=== PATIENT | male | born 1950 | race Caucasian/White ===

== ENCOUNTER 2017-07-09 11:02 | Emergency (ER) | payer MEDICARE, OTHER ==
[2017-07-09 11:33] LABS: Basophils % (Auto) 0.9 % (0.0-1.8); Eosinophils % (Auto) 2.2 % (0.0-4.3); Hematocrit 41.2 % (35.5-45.6); Hemoglobin 14.3 gm/dl (11.8-15.2); Mean Corpuscular HGB Conc 35 % (32-34); Mean Corpuscular Hemoglobin 31 pg (28-32); Mean Corpuscular Volume 90 fl (84-94); Platelet Count 169 K/mm3 (140-440); Red Blood Count 4.59 M/mm3 (3.65-5.03); Red Cell Distribution Width 13.2 % (13.2-15.2); White Blood Count 6.8 K/mm3 (4.5-11.0)
[2017-07-09 11:39] LABS: INR 1.03 (0.87-1.13); Partial Thromboplastin Time 25.5 Sec. (24.2-36.6)
--- NOTE | 2017-07-09 11:50 | Cat Scan Report ---
CT HEAD WITHOUT CONTRAST: HISTORY: Neurological deficit, stroke. Serial contiguous axial images were obtained through the cranium. Intravenous contrast material was not administered. An acute hemorrhage is identified in the right lateral thalamus which extends to involve the posterior limb of internal capsule and the right valencia radiata. The hemorrhage measures up to 1.6 cm in greatest diameter. There is no evidence for significant mass effect, midline shift or intraventricular extension. The remainder of the brain parenchyma is within normal limits. Normal ventricular size. The posterior fossa and contents are unremarkable. The mastoid air cells and visualized portions of the sinuses are normal. IMPRESSION: Right thalamic hemorrhage as described above. These findings were discussed with Dr. Prather in the emergency department at 1146 hrs.
[2017-07-09 12:00] LABS: Anion Gap 20 mmol/L; BUN/Creatinine Ratio 21; Blood Urea Nitrogen 17 mg/dL (9-20); Calcium 9.5 mg/dL (8.4-10.2); Carbon Dioxide 21 mmol/L (22-30); Chloride 101.7 mmol/L (98-107); Glucose 199 mg/dL (75-100); Potassium 4.1 mmol/L (3.6-5.0); Sodium 139 mmol/L (137-145)
--- NOTE | 2017-07-09 12:01 | Emergency Department Report ---
ED Neuro Deficit HPI - General Chief Complaint: Neuro Symptoms/Deficit Stated Complaint: LEFT ARM AND LEG NUMBNESS Time Seen by Provider: 07/09/17 11:47 Source: patient Mode of arrival: Ambulatory Limitations: No Limitations - History of Present Illness Initial Comments: This is a 67-year-old male, the patient is previously unknown to this provider, reports a past medical history of diabetes, hypertension and high cholesterol. Patient presents to the ER with a complaint of left arm weakness and numbness which started last night. No headache, neck pain, chest pain, abdominal pain or shortness of breath. No cocaine use. Not taking anticoagulants. Patient reports this is a happen before. Symptoms are constant. They have no exacerbating or relieving factors. -: Gradual Location: left arm Presenting Symptoms: Present: Weak/Paralyzed One Side. Absent: Sudden, Severe Headache, Blurred/Loss of Vision, Facial Droop/Numbness, Unable to Speak Clearly , Altered Mental Status History of same: No Place: home Severity: mild Quality: numb Improves With: none Worsens With: none On Anticoagulants: No Context: sudden onset Associated Symptoms: denies: confusion, chest pain, cough, diaphoresis, fever/ chills, headaches, loss of appetite, malise, nausea/vomiting, seizures, shortness of breath, syncope, weakness - Related Data Home Medications: Home Medications Medication Instructions Recorded Confirmed Last Taken metFORMIN [Glucophage] 1,000 mg PO BID 07/09/17 07/09/17 07/09/17 Allergies/Adverse Reactions: Allergies Allergy/AdvReac Type Severity Reaction Status Date / Time No Known Allergies Allergy Unverified 07/09/17 11:14 ED Review of Systems ROS: Stated complaint: LEFT ARM AND LEG NUMBNESS Other details as noted in HPI Constitutional: denies: fever Eyes: denies: eye discharge ENT: denies: epistaxis Respiratory: denies: cough Cardiovascular: denies: chest pain Gastrointestinal: denies: abdominal pain Genitourinary: denies: dysuria Musculoskeletal: as per HPI Skin: as per HPI Neurological: numbness. denies: headache Psychiatric: as per HPI ED Past Medical Hx - Past Medical History Previous Medical History?: Yes Hx Hypertension: Yes Hx Diabetes: Yes Additional medical history: high cholesterol - Surgical History Past Surgical History?: No - Social History Smoking Status: Former Smoker Substance Use Type: Alcohol, Prescribed - Medications Home Medications: Home Medications Medication Instructions Recorded Confirmed Last Taken Type metFORMIN [Glucophage] 1,000 mg PO BID 07/09/17 07/09/17 07/09/17 History ED Neuro Physical Exam - General Limitations: No Limitations General appearance: alert, in no apparent distress Suspected Stroke: Yes - Head Head exam: Present: atraumatic, normocephalic - Eye Eye exam: Present: normal appearance, PERRL, EOMI, other (visual acuity intact to finger counting, color perception, reading at a close distance). Absent: nystagmus - ENT ENT exam: Present: normal exam, normal orophraynx, mucous membranes moist, normal external ear exam - Neck Neck exam: Present: normal inspection, full ROM. Absent: tenderness, meningismus - Respiratory Respiratory exam: Present: normal lung sounds bilaterally. Absent: respiratory distress, wheezes, rales, rhonchi, stridor, chest wall tenderness - Cardiovascular Cardiovascular Exam: Present: regular rate, normal rhythm, normal heart sounds. Absent: bradycardia, tachycardia, irregular rhythm, systolic murmur, diastolic murmur, rubs, gallop - GI/Abdominal GI/Abdominal exam: Present: soft, normal bowel sounds. Absent: distended, tenderness, guarding, rebound, rigid, bruit, pulsatile mass - Rectal Rectal exam: Present: deferred - Extremities Exam Extremities exam: Present: normal inspection, full ROM. Absent: pedal edema, joint swelling, calf tenderness - Back Exam Back exam: Present: normal inspection, full ROM. Absent: tenderness, CVA tenderness (R), paraspinal tenderness - Neurological Exam Neurological exam: Present: alert, oriented X3, normal gait, motor sensory deficit (decreased sensation to light touch left upper extremity), other (5 out of 5 strength bilateral upper and lower extremities. There is no facial droop. The tongue is midline. Extraocular movements are intact bilaterally. Facial sensation intact to light touch in the bilateral V1, V2, V3 distribution. Normal phonation. Visual acuity intact to direct confrontation grossly bilaterally. Hearing intact bilaterally. Palate normal. Normal symmetric elevation of the palate. Normal hearing. Shoulder shrug intact bilaterally. Hearing intact bilaterally) - NIHSS Assessment Interval: Baseline 1a. Level of Consciousness: alert 1b. LOC Questions: answers correctly 1c. LOC Commands: performs tasks correctly 2. Best Gaze: normal 3. Visual: no visual loss 4. Facial Palsy: normal symmetrical movement 5b. Motor Arm Right: no drift 5a. Motor Arm Left: no drift 6a. Motor Leg Left: no drift 6b. Motor Leg Right: no drift 7. Limb Ataxia: absent 8. Sensory: mild/moderate sensory loss 9. Best Language: no aphasia 10. Dysarthria: normal 11. Extinction/Inattention: no abnormality Total Score: 1 Stroke Severity: Minor Stroke - Psychiatric Psychiatric exam: Present: normal affect, normal mood - Skin Skin exam: Present: warm, dry, intact, normal color. Absent: rash ED Course Vital Signs 07/09/17 07/09/17 07/09/17 11:09 11:57 12:01 Temperature 97.8 F Pulse Rate 78 71 71 Respiratory 20 15 Rate Blood Pressure 147/102 183/94 Blood Pressure [Left] O2 Sat by Pulse 97 82 L Oximetry 07/09/17 07/09/17 07/09/17 12:13 12:15 12:23 Temperature Pulse Rate 74 70 96 H Respiratory 16 15 Rate Blood Pressure 177/96 177/96 Blood Pressure 183/94 [Left] O2 Sat by Pulse 97 96 Oximetry 07/09/17 07/09/17 07/09/17 12:24 12:26 12:30 Temperature Pulse Rate 70 68 Respiratory 16 22 Rate Blood Pressure 182/92 Blood Pressure [Left] O2 Sat by Pulse 96 93 Oximetry 07/09/17 07/09/17 07/09/17 12:45 13:00 13:15 Temperature Pulse Rate 67 71 70 Respiratory 12 9 L 11 L Rate Blood Pressure 177/90 141/80 120/71 Blood Pressure [Left] O2 Sat by Pulse 95 96 93 Oximetry - Reevaluation(s) Reevaluation #1: 07/09/17 12:32 Dr Napoleon Rodrigues accepts patient to [facility] Patient now hypertensive, nicardipine drip has been ordered. - Lab Data Result diagrams: 07/09/17 11:18 07/09/17 11:18 Lab Results 07/09/17 07/09/17 07/09/17 Range/Units 11:18 11:18 11:18 WBC 6.8 (4.5-11.0) K/mm3 RBC 4.59 (3.65-5.03) M/mm3 Hgb 14.3 (11.8-15.2) gm/dl Hct 41.2 (35.5-45.6) % MCV 90 (84-94) fl MCH 31 (28-32) pg MCHC 35 H (32-34) % RDW 13.2 (13.2-15.2) % Plt Count 169 (140-440) K/mm3 Lymph % (Auto) 38.7 H (13.4-35.0) % Phelps % (Auto) 6.8 (0.0-7.3) % Eos % (Auto) 2.2 (0.0-4.3) % Baso % (Auto) 0.9 (0.0-1.8) % Lymph # 2.6 (1.2-5.4) K/mm3 Phelps # 0.5 (0.0-0.8) K/mm3 Eos # 0.2 (0.0-0.4) K/mm3 Baso # 0.1 (0.0-0.1) K/mm3 Seg Neutrophils % 51.4 (40.0-70.0) % Seg Neutrophils # 3.5 (1.8-7.7) K/mm3 PT 14.0 (12.2-14.9) Sec. INR 1.03 (0.87-1.13) APTT 25.5 (24.2-36.6) Sec. Thrombin Time (15.1-19.6) Sec. Sodium 139 (137-145) mmol/L Potassium 4.1 (3.6-5.0) mmol/L Chloride 101.7 (98-107) mmol/L Carbon Dioxide 21 L (22-30) mmol/L Anion Gap 20 mmol/L BUN 17 (9-20) mg/dL Creatinine 0.8 (0.8-1.5) mg/dL Estimated GFR > 60 ml/min BUN/Creatinine Ratio 21 % Glucose 199 H (75-100) mg/dL Calcium 9.5 (8.4-10.2) mg/dL Troponin T < 0.010 (0.00-0.029) ng/mL 07/09/17 Range/Units 11:18 WBC (4.5-11.0) K/mm3 RBC (3.65-5.03) M/mm3 Hgb (11.8-15.2) gm/dl Hct (35.5-45.6) % MCV (84-94) fl MCH (28-32) pg MCHC (32-34) % RDW (13.2-15.2) % Plt Count (140-440) K/mm3 Lymph % (Auto) (13.4-35.0) % Phelps % (Auto) (0.0-7.3) % Eos % (Auto) (0.0-4.3) % Baso % (Auto) (0.0-1.8) % Lymph # (1.2-5.4) K/mm3 Phelps # (0.0-0.8) K/mm3 Eos # (0.0-0.4) K/mm3 Baso # (0.0-0.1) K/mm3 Seg Neutrophils % (40.0-70.0) % Seg Neutrophils # (1.8-7.7) K/mm3 PT (12.2-14.9) Sec. INR (0.87-1.13) APTT (24.2-36.6) Sec. Thrombin Time 16.7 (15.1-19.6) Sec. Sodium (137-145) mmol/L Potassium (3.6-5.0) mmol/L Chloride (98-107) mmol/L Carbon Dioxide (22-30) mmol/L Anion Gap mmol/L BUN (9-20) mg/dL Creatinine (0.8-1.5) mg/dL Estimated GFR ml/min BUN/Creatinine Ratio % Glucose (75-100) mg/dL Calcium (8.4-10.2) mg/dL Troponin T (0.00-0.029) ng/mL - EKG Data -: EKG Interpreted by Ms EKG shows normal: sinus rhythm, axis, intervals, QRS complexes, ST-T waves When compared to previous EKG there are: previous EKG unavailable 07/09/17 12:00 Sinus, 75 bpm, normal axis, normal intervals, not having chest pain, high left ventricular voltage, not morphological consistent with STEMI - Radiology Data Radiology results: report reviewed, image reviewed Noncontrast CT scan of the brain: 1.6 cm right-sided thalamic stroke, hemorrhagic. No shift. No mass effect. - Medical Decision Making Differential diagnosis, including but not limited to: Ischemic stroke, hemorrhagic stroke Assessment and plan: 67-year-old male with hemorrhagic right-sided thalamic stroke, GCS of 15, NIH score is 0. Given presence of intracranial hemorrhage, the patient is not a thrombosis candidate. This hospital does not have neurology, or neurosurgery available for consultation. The patient will therefore require transfer to a facility that has neuro critical care available for consultation and definitive management. The patient is not hypertensive at this time, he has no complaints at this time , family and patient were informed of findings, and need to transfer - Core Measures Measure Exclusions: not indicated - Thrombolytic Inclusion/Exclusion Thrombolytic Exclusion Criteria: Symptom Onset > 3 Hours Thrombolytic Contraindications: GI or Other Bleeding Critical Care Time: Yes Critical care time in (mins) excluding proc time.: 35 Critical care attestation.: If time is entered above; I have spent that time in minutes in the direct care of this critically ill patient, excluding procedure time. ED Disposition Clinical Impression: Hemorrhagic stroke Dis[facility] Is pt being admited?: No Does the pt Need Aspirin: No Condition: Critical Referrals: PRIMARY CARE, [Primary Care Provider] - 3-5 Days
[2017-07-09] MEDS ORDERED: KEPPRA 1,000 MG/NS 0.75% 100ML 1,000 MG/100 ML BAG IV ONE ×2 (12:21)
[2017-07-09] MEDS ORDERED: NORMODYNE IV ONE ×2 (12:21)
[2017-07-09] MEDS ORDERED: CARDENE 50 MG in NACL 0.9% 250ML 230 ML IV SCH (13:00)
[2017-07-09 13:20] VITALS: BP 120/71
== END 2017-07-09 13:38 | disposition short-term general hospital (02) ==
LOC: ED 11:02
DX: I62.9 Nontraumatic intracranial hemorrhage, unspecified (principal); I10 Essential (primary) hypertension; E11.9 Type 2 diabetes mellitus without complications; E78.00 Pure hypercholesterolemia, unspecified; Z87.891 Personal history of nicotine dependence
CPT/HCPCS: 36415; 70450; 80048; 84484; 85025; 85610; 85670; 85730; 93005; 93010; 96365; 96375; 99291; J1953; J7050